=== PATIENT | female | born 2000 | race African-American/Black ===

== ENCOUNTER 2021-12-16 17:35 | Emergency (ER) | payer BC, OTHER | END 2021-12-16 19:39 | disposition home or self-care (01) | LOC: CSHERS 17:35 | DX: H65.93 Unspecified nonsuppurative otitis media, bilateral (principal); J02.9 Acute pharyngitis, unspecified | CPT/HCPCS: 87081; 87430; 99283 ==

== ENCOUNTER 2023-09-03 12:01 | Emergency (ER) | payer SELFPAY ==
[2023-09-03 13:35] LABS: Influenza A by NAA DETECTED (NotDetected); SARS-CoV-2 NAA Rapid Test Not Detected (NotDetected)
== END 2023-09-03 14:23 | disposition home or self-care (01) ==
LOC: CSHERS 12:01
DX: J10.1 Influenza due to other identified influenza virus with other respiratory manifestations (principal)
CPT/HCPCS: 87081; 87430; 99283

== ENCOUNTER 2023-09-04 11:43 | Emergency (ER) | payer SELFPAY ==
[2023-09-04] MEDS ORDERED: Ondansetron PF 4 MG/2 ML Vial ONE (12:27)
[2023-09-04] MEDS ORDERED: Acetaminophen 500 MG TAB ONE (12:28)
[2023-09-04 12:55] LABS: Bilirubin Neg (Negative); Blood, Urine 10 (Negative); Clarity Cloudy (Clear); Glucose, Urine (Dipstick) Normal (Negative); Ketone, Urine 150 mg/dL (Negative); Leukocyte Negative (Negative); Nitrite Positive (Negative); Protein, Urine (Dipstick) 100 mg/dl (Neg-Trace); Specific Gravity, Urine 1.025 (1.005-1.030); Urobilinogen Normal mg/dL (Less than 2)
[2023-09-04 12:58] LABS: #Monocytes 0.6 10x3/uL (0.0-1.1); %Basophils 0.4 % (0.0-2.0); %Monocytes 10.9 % (0.0-10.0); %Neutrophils 80.1 % (40.0-75.0); Hematocrit 35.9 % (34.9-44.5); Hemoglobin 11.7 g/dL (12.0-15.5); Mean Corpuscular HGB CONC 32.6 g/dL (32.0-36.0); Mean Corpuscular Hemoglobin 31.1 pg (27.0-33.0); Mean Corpuscular Volume 95.5 fl (81.6-98.3); Mean Platelet Volume 9.6 fl (7.4-10.4); Platelet Count 271 10x3/uL (150-450); RBC Distribution Width 11.9 % (11.5-14.5); Red Blood Cell (RBC) Count 3.76 10x6/uL (3.90-5.03)
[2023-09-04 13:04] LABS: BHCG - Serum Negative (NEGATIVE); Pregs Control Background? CLEAR/WHITE (CLR/WHITE); Pregs Control Bar Appear? YES (CONTROL BAR)
[2023-09-04 13:11] LABS: RBC/HPF 0-3 HPF (0-3)
[2023-09-04 13:12] LABS: Bacteria/HPF 1+ HPF (None Seen); CAUTI Indications for Culture Dysuria,urgency,freq; Urine Culture Reflex No No; WBC/HPF 0-3 HPF (0-3)
[2023-09-04 13:15] LABS: ALT (SGPT) 116 U/L (8-55); AST (SGOT) 131 U/L (5-34); Albumin 4.5 g/dL (3.5-5.0); Alkaline Phosphatase 65 U/L (40-110); Anion Gap 20 mmol/L (10-20); BUN (Urea Nitrogen) 17 mg/dL (7.0-18.7); Bilirubin, Total 0.3 mg/dL (0.2-1.2); Calc. Creatinine Clearance 0 mL/min (70-130); Calcium 9.7 mg/dL (7.8-10.44); Carbon Dioxide 19 mmol/L (22-29); Chloride 105 mmol/L (98-107); Estimated GFR 70; Globulin 3.4 g/dL (2.4-3.5); Glucose 99 mg/dL (70-105); Lipase 84 U/L (8-78); Potassium 3.6 mmol/L (3.5-5.1); Protein, Total 7.9 g/dL (6.0-8.3); Sodium 140 mmol/L (136-145)
== END 2023-09-04 16:44 | disposition home or self-care (01) ==
LOC: CSHERS 11:43
DX: K52.9 Noninfective gastroenteritis and colitis, unspecified (principal); N30.00 Acute cystitis without hematuria
CPT/HCPCS: 76705; 80053; 81001; 83605; 83690; 84703; 85025; 96360; 96361; J2405

== ENCOUNTER 2024-08-19 19:51 | Emergency (ER) | payer SELFPAY ==
[2024-08-19] MEDS ORDERED: Sterile Water 10 ML ONE (21:40)
[2024-08-19] MEDS ORDERED: cefTRIAXone (ROCEPHIN) 500 MG VIAL ONE (21:40)
== END 2024-08-19 22:13 | disposition home or self-care (01) ==
LOC: CSHERS 19:51
DX: Z20.2 Contact with and (suspected) exposure to infections with a predominantly sexual mode of transmission (principal)
CPT/HCPCS: 96372; 99283; J0696

== ENCOUNTER 2025-01-10 09:34 | Emergency (ER) | payer SELFPAY ==
[2025-01-10 10:31] LABS: Glucose, Urine (Dipstick) Normal (Negative); Leukocyte Negative (Negative); Protein, Urine (Dipstick) 30 mg/dl (Neg-Trace); Specific Gravity, Urine 1.020 (1.005-1.030)
[2025-01-10 10:36] LABS: Pregnancy Test - Urine (BHCG) Negative (Negative); Pregu Control Background? CLEAR/WHITE (CLR/WHITE); Pregu Control Bar Appear? YES (CONTROL BAR)
[2025-01-10 10:58] LABS: Bacteria/HPF None Seen HPF (None Seen); CAUTI Indications for Culture Dysuria,urgency,freq; RBC/HPF None Seen HPF (0-3); Urine Culture Reflex No No; WBC/HPF 0-3 HPF (0-3)
[2025-01-11 02:54] LABS: Chlam.trachomatis by PCR,Urine Not Detected (NotDetected); GC N.gonorrhoeae PCR,UrineVOID Not Detected (NotDetected)
== END 2025-01-10 11:04 | disposition home or self-care (01) ==
LOC: CSHERS 09:34
DX: Z20.6 Contact with and (suspected) exposure to human immunodeficiency virus [HIV] (principal)
CPT/HCPCS: 81001; 81025; 87491; 87536; 87591; 99283

== ENCOUNTER 2025-04-01 13:26 | Emergency (ER) | payer SELFPAY ==
[2025-04-01] MEDS ORDERED: levETIRAcetam 500 MG TAB ONE (14:33)
== END 2025-04-01 14:33 | disposition home or self-care (01) ==
LOC: CSHERS 13:26
DX: R56.9 Unspecified convulsions (principal); Z76.0 Encounter for issue of repeat prescription